=== PATIENT | male | born 1985 | race Caucasian/White ===

== ENCOUNTER 2017-08-04 01:31 | Emergency (ER) | payer SELFPAY ==
[2017-08-04 02:17] LABS: #Eosinphils 0.4 thou/uL (0.0-0.7); #Lymphocytes 4.3 thou/uL (1.20-3.40); #Monocytes 1.1 thou/uL (0.11-0.59); #Neutrophils 7.1 thou/uL (1.40-6.50); %Basophils 0.3 % (0.0-1.0); %Eosinophils 3.4 % (0.0-10.0); %Lymphocytes 33.4 % (21.0-51.0); %Monocytes 8.4 % (0.0-10.0); %Neutrophils 54.5 % (42.0-75.0); Hemoglobin 16.6 g/dL (14.0-18.0); Mean Corpuscular HGB CONC 33.5 g/dL (32.0-36.0); Mean Corpuscular Hemoglobin 27.1 pg (27.0-31.0); Mean Corpuscular Volume 80.9 fl (80.0-94.0); Mean Platelet Volume 7.2 fL (7.4-10.4); Platelet Count 235 thou/uL (130-400); RBC Distribution Width 12.6 % (11.5-14.5); Red Blood Cell (RBC) Count 6.11 mill/uL (4.70-6.10)
[2017-08-04 02:23] LABS: Bilirubin Negative (Negative); Blood, Urine Negative (Negative); Clarity CLEAR (Clear); Glucose, Urine (Dipstick) Negative (Negative); Leukocyte Negative (Negative); Nitrite Negative (Negative); Protein, Urine (Dipstick) Negative (Neg-Trace); Specific Gravity, Urine 1.007 (1.002-1.036); Urobilinogen 0.2 mg/dL (0.2-1.0); pH, Urine 6.5 (5.0-9.0)
[2017-08-04 03:24] LABS: Albumin 4.2 g/dL (3.5-5.0)
[2017-08-04 03:25] LABS: Calcium 9.5 mg/dL (7.8-10.44); Chloride 102 mmol/L (98-107); Potassium 3.9 mmol/L (3.5-5.1); Sodium 134 mmol/L (136-145)
[2017-08-04 03:26] LABS: Globulin 3.2 g/dL (2.4-3.5); Glucose 100 mg/dL (70-105); Protein, Total 7.4 g/dL (6.0-8.3)
[2017-08-04 03:27] LABS: Anion Gap 10 mmol/L (10-20); Carbon Dioxide 26 mmol/L (22-29)
[2017-08-04 03:28] LABS: Bilirubin, Total 0.5 mg/dL (0.2-1.2)
[2017-08-04 03:29] LABS: Alkaline Phosphatase 87 U/L (40-150); Calc. Creatinine Clearance 0 mL/min (70-130); Estimated GFR-MDRD 79
[2017-08-04 03:30] LABS: BUN (Urea Nitrogen) 17 mg/dL (8.9-20.6)
[2017-08-04 03:31] LABS: AST (SGOT) 15 U/L (5-34)
[2017-08-04 03:32] LABS: ALT (SGPT) 26 U/L (8-55); Lipase 29 U/L (8-78)
--- NOTE | 2017-08-04 07:46 | CT ---
PRELIMINARY REPORT/[facility]/EMERGENCY AFTER HOURS PROCEDURE: EXAM: CT Abdomen and Pelvis With Intravenous Contrast EXAM DATE/TIME: Exam ordered 08/04/2017 2:22 AM CLINICAL HISTORY: 31 years old, male; Pain; Abdominal pain; Generalized; Patient HX: Er 14; No previous; M31 presents w / abd pain for a few days. Pt reports severe diarrhea sunday night to sunday morning. Pt denies r ecent n/v. Pt denies recent trauma, fevers, or rashes. Pt reports HX of HTN. Pt reports heart stent w hen he was 10. Pt reports chronic back pain from previous injury. Pt denies abd surgical HX. TECHNIQUE: Axial computed tomography images of the abdomen and pelvis with intravenous contrast. Coronal reformatted images were created and reviewed. CONTRAST: 96 mL of ISOVUE 370 administered intravenously. COMPARISON: No relevant prior studies available. FINDINGS: Lung bases: Unremarkable. No mass. No consolidation. ABDOMEN: Liver: Hepatic steatosis. Gallbladder and bile ducts: Unremarkable. No calcified stones. No ductal dilation. Pancreas: Unremarkable. No mass. No ductal dilation. Spleen: Unremarkable. No splenomegaly. Adrenals: Unremarkable. No mass. Kidneys and ureters: Unremarkable. No solid mass. No hydronephrosis. Stomach and bowel: Unremarkable. No obstruction. No mucosal thickening. Appendix: Normal appendix. PELVIS: Bladder: Unremarkable. No mass. Reproductive: Unremarkable as visualized. ABDOMEN and PELVIS: Intraperitoneal space: Epiploic appendagitis of the sigmoid colon superior to the bladder. No free ai r. No significant fluid collection. Bones/joints: No acute fracture. No dislocation. Soft tissues: Unremarkable. Vasculature: Unremarkable. No abdominal aortic aneurysm. Lymph nodes: Unremarkable. No enlarged lymph nodes. IMPRESSION: Epiploic appendagitis of the sigmoid colon superior to the bladder. Thank you for allowing us to participate in the care of your patient. Dictated and Authenticated by: Antony Mayfield MD 08/04/2017 2:58 AM Central Time ([place] & [place]) FINAL REPORT CT ABDOMEN AND PELVIS WITH CONTRAST: HISTORY: Abdominal pain. Guarding. COMPARISON: None. FINDINGS/IMPRESSION: Findings and impression are concordant with the preliminary report. POS: [facility]
[2017-08-04] MEDS ORDERED: ISOVUE-370 76%-LOCM 1 ML ONE (07:49)
== END 2017-08-04 03:57 | disposition home or self-care (01) ==
LOC: ERS 01:31
DX: K63.89 Other specified diseases of intestine (principal); I10 Essential (primary) hypertension; E66.9 Obesity, unspecified; F41.9 Anxiety disorder, unspecified
CPT/HCPCS: 36415; 74177; 80053; 81003; 83690; 85025